=== PATIENT | female | born 2005 | race Caucasian/White ===

== ENCOUNTER 2024-09-18 11:47 | Inpatient (IN) | payer MEDICAID, SELFPAY ==
[2024-09-18] VITALS (7 sets, daily range): BP systolic 106–126; BP diastolic 57–84; PULSE 87–108; RESP 15–18; TEMP 36.8–37.1; O2SAT 95–99; BMI 21.7; BMI 21.6
--- NOTE | 2024-09-18 12:14 | EDS_ITS ---
HPI History of Present Illness Chief Complaint: Substance Abuse Narrative Narrative: Patient is a 19-year-old female past medical history of opiate abuse who presented to the emergency department with wanting detox. Patient states that she smokes heroin and notes that she last used last night. States that she is gone through detox before and states that she needs detox again. Patient has no specific complaints at this point time. Patient denies any history of IV drug use. PFSH PFSH Medical History no medical history Home Medications ?Medication ?Instructions ?Recorded ?Last Taken ?Type albuterol sulfate 90 mcg/actuation 1 puff inhalation Q 4H PRN wheezing 09/18/24 Unknown History aerosol inhaler Allergy/AdvReac Type Severity Reaction Status Date / Time No Known Allergies Allergy Verified 09/18/24 11:47 Social History Smoking Status: Current every day smoker tobacco type: cigarettes ROS ROS ED ROS Narrative Constitutional: Denies fevers, chills, headaches Cardiovascular: Denies chest pain Respiratory: Denies shortness of breath Abdomen: Denies nausea vomit diarrhea : Denies urinary symptoms Neurological: Denies numbness, weakness, tingling Skin: Denies rashes or lesions EXAM Physical Exam Narrative Exam Narrative: General: Patient lying in bed rest comfortably did not appear to be acute distress Head: Atraumatic, normocephalic Eyes: PERRL bilaterally, EOMI bilaterally, no conjunctival injection noted Neck: Soft, supple, trach midline Cardiovascular: Regular in rhythm no murmurs gallops rubs noted Respiratory: Clear to auscultation bilaterally Abdomen: Soft, nondistended, tender to palpation Extremities: +5/5 strength noted in the bilateral upper and lower extremities Neurological: Patient follow commands knew that she was at [facility] year is 2024 Skin: Warm, dry, intact no rashes or lesions noted Const Vital Signs: 09/18/24 11:48 09/18/24 12:50 09/18/24 13:00 Temperature 98.7 F Temperature Source Oral Pulse Rate 108 H 91 90 Respiratory Rate 16 15 16 Blood Pressure 106/76 110/69 112/58 L Blood Pressure Mean 86 82 76 Pulse Ox 96 96 96 Oxygen Delivery Method Room Air Room Air Room Air MDM MDM MDM Narrative Medical decision making narrative: Patient is a 19-year-old female who presented to the emergency department for detox from heroin. On the differential diagnosis includes but limited to heroin use, other opiate abuse, polysubstance abuse. Once she is medically cleared Case we discussed with hospitalist for admission. Patient CBC reviewed showed no evidence leukocytosis white blood count normal at 5.7, hemoglobin is 11.8, plate count normal at 225. Patient sodium normal 142, potassium of 4, creatinine was 0.59. Patient's test negative, alcohol level less than 10. Patient's drug screen pending. At this point time will discuss case with hospitalist for her detox program from opiates. Discussed case with hospitalist Dr. Hurtado who accept patient for admission. Patient was notified is agreeable to plan all question concerns answered. Lab Data Labs: Laboratory Results - last 24 hr 09/18/24 12:19 WBC 5.7 RBC 3.92 L Hgb 11.8 L Hct 35.8 L MCV 91.3 MCH 30.1 MCHC 33.0 RDW Std Deviation 42.1 RDW Coeff of Beatriz 12.7 Plt Count 225 MPV 10.0 Immature Gran % (Auto) 0.300 Neut % (Auto) 55.2 Lymph % (Auto) 32.8 [place] % (Auto) 8.2 Eos % (Auto) 3.3 Baso % (Auto) 0.2 Absolute Neuts (auto) 3.2 Absolute Lymphs (auto) 1.88 Nucleated RBC % 0 Sodium 142 Potassium 4.0 Chloride 111 H Carbon Dioxide 21.8 Anion Gap 10 BUN 18 Creatinine 0.59 L Estim Creat Clear Calc 125.82 Est GFR (MDRD) Non-Af 132 BUN/Creatinine Ratio 29.7 H Glucose 87 Calcium 8.6 Serum , Qual NEGATIVE Ethyl Alcohol < 10.1 Discharge Plan Triage Chief Complaint: Substance Abuse ED Provider: Alvin Harding Dx/Rx/DC Orders Clinical Impression: Opioid abuse Prescriptions: No Action albuterol sulfate 90 mcg/actuation HFA aerosol inhaler 1 puff INHALATION Q4H PRN (Reason: wheezing) Primary Care Provider: Care Physician,No Primary Referrals: Care Physician,No Primary [Primary Care Provider] - Print Language: Italian Disposition Disposition: Acute Care [facility]
[2024-09-18 12:25] LABS: Absolute Lymphocyte Count 1.88 X10^3/uL (0.83-4.51); Absolute Neutrophil Count 3.2 X10^3/uL (2.0-7.7); Basophil# 0.01 X10^3/uL; Basophil% 0.2 % (0-1); Eosinophil# 0.19 X10^3/uL; Eosinophils% 3.3 % (0-5); Hematocrit 35.8 % (37-47); Hemoglobin 11.8 g/dL (12.0-15.0); Lymphocyte # 1.88 X10^3/ul (0.83-4.51); Lymphocyte % 32.8 % (19-41); Mean Corpuscular Hgb 30.1 pg (27.0-32.0); Mean Corpuscular Volume 91.3 fL (81-99); Monocyte# 0.47 X10^3/uL; Monocyte% 8.2 % (0-10); NRBC Flagged by Analyzer 0 % (0-5); Neutrophil # 3.16 X10^3/uL (2.7-7.7); Neutrophil % 55.2 % (47-70); Platelet Count 225 K/mm3 (150-450); RBC Distribution Width CV 12.7 % (11.6-14.6); RBC Distribution Width SD 42.1 fl (35.1-43.9); Red Blood Count 3.92 M/mm3 (4.2-5.4); White Blood Count 5.7 K/mm3 (4.4-11.0)
[2024-09-18 12:37] LABS: Internal QC Validated? YES +Cl - CLEAR BKGD; Pregnancy, Serum, hCG Quali. NEGATIVE Negative
[2024-09-18 12:46] LABS: Alcohol, Blood (Medical)-Serum < 10.1 mg/dL (<=10.0)
[2024-09-18 12:47] LABS: Anion Gap 10 (5-15); BUN 18 mg/dL (4-19); BUN/Creat Ratio 29.7 RATIO (10-20); Calcium,Total 8.6 mg/dL (7.6-11.0); Carbon Dioxide 21.8 mmol/L (21.0-32.0); Chloride 111 mmol/L (98-108); Creatinine, Serum 0.59 mg/dL (0.70-1.20); EST Glomerular Filtration Rate 132 (>60); Estimated Creatinine Clearance 125.82 ml/min (50-250); Glucose 87 mg/dL (70-99); Sodium Level 142 mmol/L (133-145)
--- NOTE | 2024-09-18 13:26 | PCM.HP.STD ---
HPI - General General Date of Admission: 09/18/24 Date of Service: 09/18/24 Chief Complaint: Opioid detox HPI Narrative ANN MARIE MOYA, is a 19-year-old female with history of opiate abuse and tobacco abuse presented [facility] ED 09/18/2024 requesting detox. She smokes heroin with last use last night, has gone through detox before and feels she needs detox again. Denies history of IV drug use. In the ED patient initially with heart rate of 108 that improved and otherwise vitally stable, hemoglobin 11.8 with no previous baseline, alcohol negative. test negative and BMP fairly benign. Hospitalist contacted for admission for detox. Patient reports history as above, smokes heroin with most recent use last night, occasionally will do meth but not routinely, denies alcohol use, does vape and would like a nicotine patch, last detox was 1 year ago. Presently ROS negative for any acute complaints PFSH Medical History no medical history Home Medications ?Medication ?Instructions ?Recorded ?Last Taken ?Type albuterol sulfate 90 mcg/actuation 1 puff inhalation Q4H PRN wheezing 09/18/24 Unknown History aerosol inhaler Allergy/AdvReac Type Severity Reaction Status Date / Time No Known Allergies Allergy Verified 09/18/24 11:47 Social History Smoking Status: Current every day smoker tobacco type: cigarettes ROS ROS Narrative General: Denies fever/chills HENT: Denies headache, denies stuffy nose, denies sore throat EYES: Denies changes in vision Resp: Denies cough, denies shortness of breath Cardiac: Denies chest pain GI: Denies abdominal pain, denies changes in bowel, denies nausea/vomiting : Denies changes in urination Extremity: Denies swelling MSK: Denies weakness Neuro: Denies any numbness/tingling Heme: Denies any bleeding or bruising Skin: Denies rashes Psychiatric: No complaints voiced Vital Signs Vital Signs Vital Signs: 09/18/24 11:48 09/18/24 12:50 09/18/24 13:00 Temperature 98.7 F Temperature Source Oral Pulse Rate 108 H 91 90 Respiratory Rate 16 15 16 Blood Pressure 106/76 110/69 112/58 L Blood Pressure Mean 86 82 76 Pulse Ox 96 96 96 Oxygen Delivery Method Room Air Room Air Room Air Weight Weight: 55.792 kg Body Mass Index (BMI) 21.7 Physical Exam Narrative General: Alert, oriented, no apparent distress HEENT: Atraumatic, normocephalic Eyes: Anicteric, normal conjunctiva, extraocular movements grossly intact Neck: Supple Respiratory: Clear to auscultation bilaterally, normal respiratory effort Cardiovascular: Regular rate and rhythm GI: Soft, nontender, nondistended Extremities: No edema Musculoskeletal: Moving all extremities Neuro: No overt focal neurological deficits Skin: No rashes appreciated Psych: Cooperative Results Lab / Micro Data 09/18/24 12:19 09/18/24 12:19 Labs: Laboratory Results - last 24 hr 09/18/24 12:19: WBC 5.7, RBC 3.92 L, Hgb 11.8 L, Hct 35.8 L, MCV 91.3, MCH 30.1, MCHC 33.0, RDW Std Deviation 42.1, RDW Coeff of Beatriz 12.7, Plt Count 225, MPV 10.0, Immature Gran % (Auto) 0.300, Neut % (Auto) 55.2, Lymph % (Auto) 32.8, [place] % (Auto) 8.2, Eos % (Auto) 3.3, Baso % (Auto) 0.2, Absolute Neuts (auto) 3.2, Absolute Lymphs (auto) 1.88, Nucleated RBC % 0, Sodium 142, Potassium 4.0, Chloride 111 H, Carbon Dioxide 21.8, Anion Gap 10, BUN 18, Creatinine 0.59 L, Estim Creat Clear Calc 125.82, Est GFR (MDRD) Non-Af 132, BUN/Creatinine Ratio 29.7 H, Glucose 87, Calcium 8.6, Serum , Qual NEGATIVE, Ethyl Alcohol < 10.1 Assessment & Plan Assessment/Plan (1) Opioid abuse: PLAN: Plan #Acute opiate withdrawal - Subutex taper initiated - As needed Tylenol, ibuprofen, bowel regimen, gabapentin, Bentyl, Vistaril, methocarbamol, clonidine - As needed trazodone nightly - As needed antiemetics -Once patient begins to clinically improve will discuss further discharge planning #Tobacco use -Advise cessation -Nicotine replacement available if desired #DVT ppx: Low risk, ambulatory Elyssa Hurtado MD Charges/Coding Visit Charges Inpatient E&M: 61373 Init Hosp L1
--- NOTE | 2024-09-18 14:24 | CM.ED ---
Social work Reason for referral: lack of insurance Referral source: case find This SW identified patient's lack of insurance and need for resources. This SW entered patient's room, introducing self and role at [facility]. Patient confirmed lack of insurance and willingly accepted how to apply for Medicaid information page with [facility] information added. Patient denied further needs at this time and SW explained that patient would be given further resources during admission for detox. Patient expressed understanding. Chaya Kaufman, MANAGER BUSINESS PLANNING, SPECIAL AGENT
[2024-09-18 14:27] LABS: Amphetamine Urine NEGATIVE (<1000 ng/mL); Barbiturate Urine NEGATIVE (< 200 ng/mL); Benzodiazepine Urine NEGATIVE (< 200 ng/mL); Buprenorphine Urine NEGATIVE (< 200 ng/mL); Cocaine Urine NEGATIVE (< 300 ng/mL); Fentanyl, Urine PRESUMPTIVE POSITIVE; Methadone Urine NEGATIVE (< 300 ng/mL); Opiates Urine PRESUMPTIVE POSITIVE (< 300 ng/mL); Oxycodone, Urine NEGATIVE (< 100 ng/mL); PCP Urine NEGATIVE (< 25 ng/mL); THC Urine PRESUMPTIVE POSITIVE (< 50 ng/mL)
[2024-09-18] MEDS: Dicyclomine 10 MG Capsule 20 MG PO (20:26)
[2024-09-18] MEDS: Buprenorphine HCl 2 MG TAB.SUBL SL (22:20)
[2024-09-19 02:11] VITALS: BP 115/87; PULSE 70; RESP 18; TEMP 37.2; O2SAT 100
[2024-09-19] MEDS: cloNIDine HCl 0.1 MG Tablet PO ×2 (02:21→16:54)
[2024-09-19] MEDS: Acetaminophen 325 MG Tablet 650 MG PO (02:21)
[2024-09-19 06:27] VITALS: BP 125/86; PULSE 78; RESP 18; TEMP 36.9; O2SAT 99
[2024-09-19] MEDS: Buprenorphine HCl 2 MG TAB.SUBL SL ×3 (06:27→21:52)
--- NOTE | 2024-09-19 07:44 | PCM.PN.HOSP ---
Reason for Visit Reason for Visit: Opiate detox Subjective Subjective Patient denies any issues. Not super interested in communicating. Objective Data Objective Data Vital Signs: Vital Signs Temp Pulse Resp BP Pulse Ox O2 Del Method 98.5 F 78 18 125/86 H 99 Room Air 09/19/24 06:27 09/19/24 06:27 09/19/24 06:27 09/19/24 06:27 09/19/24 06:27 09/19/24 06:27 Oxygen Delivery Method Room Air Weight: 55.429 kg Body Mass Index (BMI) 21.6 Intake & Output: Intake and Output for Last 24 Hours 09/17/24 09/18/24 09/19/24 23:59 23:59 23:59 Intake Total 200 / 200 Balance 200 / 200 Lab / Micro Data 09/18/24 12:19 09/18/24 12:19 Labs: Laboratory Results - last 24 hr 09/18/24 12:19: WBC 5.7, RBC 3.92 L, Hgb 11.8 L, Hct 35.8 L, MCV 91.3, MCH 30.1, MCHC 33.0, RDW Std Deviation 42.1, RDW Coeff of Beatriz 12.7, Plt Count 225, MPV 10.0, Immature Gran % (Auto) 0.300, Neut % (Auto) 55.2, Lymph % (Auto) 32.8, [place] % (Auto) 8.2, Eos % (Auto) 3.3, Baso % (Auto) 0.2, Absolute Neuts (auto) 3.2, Absolute Lymphs (auto) 1.88, Nucleated RBC % 0, Sodium 142, Potassium 4.0, Chloride 111 H, Carbon Dioxide 21.8, Anion Gap 10, BUN 18, Creatinine 0.59 L, Estim Creat Clear Calc 125.82, Est GFR (MDRD) Non-Af 132, BUN/Creatinine Ratio 29.7 H, Glucose 87, Calcium 8.6, Serum , Qual NEGATIVE, Ethyl Alcohol < 10.1 09/18/24 13:11: Urine Opiates Screen PRESUMPTIVE POSITIVE, U Buprenorphine Qual NEGATIVE, Ur Oxycodone Screen NEGATIVE, Urine Methadone Screen NEGATIVE, Urine Fentanyl Screen PRESUMPTIVE POSITIVE, Ur Barbiturates Screen NEGATIVE, Ur Phencyclidine Scrn NEGATIVE, Ur Amphetamines Screen NEGATIVE, U Benzodiazepines Scrn NEGATIVE, Urine Cocaine Screen NEGATIVE, U Cannabinoids Screen PRESUMPTIVE POSITIVE Physical Exam Const no apparent distress and average body habitus Constitutional Narrative: Patient lying in left side-lying, awakens and answers simple questions but not overtly interactive, currently appears restless, nontoxic HEENT head/scalp atraumatic Head and Scalp: normocephalic Neuro moves all extremities and no focal motor deficits Psych Psych Narrative: Restless Mood & Affect: anxious Assessment & Plan Assessment/Plan (1) Opioid abuse: PLAN: Plan Acute opiate withdrawal secondary to chronic opiate abuse - Subutex taper per [facility]OWS protocol - Continue as needed medication for symptom relief - As needed Tylenol available for pain - 180 consultation for assistance with discharge planning - UDS was presumptive positive for opiates/fentanyl/cannabinoids Anemia - Mild to 11.8 - recommend outpatient follow-up for stability - Patient is a menstruating female Marijuana use - Recommend cessation Tobacco abuse - Recommend cessation - Nicotine patch available if needed CODE STATUS - Full code Charges/Coding Visit Charges Inpatient E&M: 36699 Subs Hosp L1
[2024-09-19 10:04] VITALS: BP 102/73; PULSE 69; RESP 15; TEMP 36.5; O2SAT 98
[2024-09-19 14:03] VITALS: BP 108/75; PULSE 69; RESP 18; TEMP 36.4; O2SAT 97
--- NOTE | 2024-09-19 15:08 | ADDICTION ---
This copywriter met with PT to conduct ASAM, MSE, DUDIT assessments and to plan for d/c. PT A+Ox4 and participated actively. All assessments completed and placed in PT's chart. PT plans to f/u with [facility] at [facility] for follow[facility]
[2024-09-19] MEDS: hydrOXYzine PAM 25 MG Capsule 50 MG PO (16:54)
[2024-09-19] MEDS: Methocarbamol 750 MG Tablet PO (17:59)
[2024-09-19 21:46] VITALS: BP 135/82; PULSE 92; RESP 16; TEMP 36.9; O2SAT 98
[2024-09-19] MEDS: Ibuprofen 600 MG Tablet PO (21:51)
[2024-09-19] MEDS: traZODone 100 MG Tablet PO (22:58)
[2024-09-20 02:18] VITALS: BP 123/69; PULSE 92; RESP 16; TEMP 36.6; O2SAT 96
[2024-09-20] MEDS: cloNIDine HCl 0.1 MG Tablet PO (03:29)
[2024-09-20] MEDS: Acetaminophen 325 MG Tablet 650 MG PO (03:29)
[2024-09-20 06:07] VITALS: BP 128/68; PULSE 93; RESP 16; TEMP 36.7; O2SAT 96
[2024-09-20] MEDS: Buprenorphine HCl 2 MG TAB.SUBL SL (06:09)
--- NOTE | 2024-09-20 07:11 | PCM.PN.HOSP ---
Reason for Visit Reason for Visit: Diagnoses Opioid abuse, uncomplicated (09/18/24) Objective Data Objective Data Vital Signs: Vital Signs Temp Pulse Resp BP Pulse Ox O2 Del Method 98.1 F 93 16 128/68 H 96 Room Air 09/20/24 06:07 09/20/24 06:07 09/20/24 06:07 09/20/24 06:07 09/20/24 06:07 09/20/24 06:07 Oxygen Delivery Method Room Air Weight: 55.429 kg Body Mass Index (BMI) 21.6 Intake & Output: Intake and Output for Last 24 Hours 09/18/24 09/19/24 09/20/24 23:59 23:59 23:59 Intake Total 200 / 200 Balance 200 / 200 Lab / Micro Data 09/18/24 12:19 09/18/24 12:19
--- NOTE | 2024-09-20 10:18 | PCM.DC.SUM ---
Providers Date of Admission: 09/18/24 Date of Discharge: 09/20/24 Primary Care Physician: No Primary Care Phys Reason For Visit: OPIOID DETOX Diagnosis Discharge Diagnosis (1) Opioid abuse: Status: Acute Code(s): F11.10 - Opioid abuse, uncomplicated Medications at Discharge Home Medications albuterol sulfate 90 mcg/actuation aerosol inhaler 1 puff inhalation Q4H PRN wheezing 09/18/24 Hospital Course Operations None Procedures None Summary of Care Provided Minutes Spent on Discharge: 22 Hospital Course: Ms Guthrie is a 19-year-old white female who presented to the emergency department at [facility] on 09/18/2024 with a chief complaint of opiate abuse and requesting opiate detox. Patient uses heroin but has never used IV drugs. She states the night prior to presentation she smoked it. She reported she is gone through detox before. On presentation she complained of feeling restless and had tachycardia. She occasionally uses meth but does not use this routinely. Vital signs on presentation showed temperature of 98.7, heart rate 108, blood pressure was 106/76, respiratory rate was 16 oxygen saturation was 96% on room air. CBC was overtly benign other than mild anemia with a hemoglobin 11.8. Chemistry panel was unremarkable. test was negative. UDS was presumptive positive for opiates, fentanyl, and cannabinoids. Alcohol level was less than 10. Patient was admitted and placed on buprenorphine taper per [facility] protocol along with supportive medications for withdrawal symptoms. Patient was evaluated by 180 and plan was for treatment and inpatient services with 180 to transport on Saturday at 10:30 AM however the patient stated she was feeling quite well on 09/20/2024 and wanted to go see her son before she got admitted into inpatient services. Her CINA was 0 at the time of discharge and she reported she was feeling well and wanted to go home. She reported she would go to 180 tomorrow to be admitted. Given the fact that she was asymptomatic and feeling well and wanted to go we did feel it prudent to discharge her home. She was instructed to follow-up tomorrow at 180 at her scheduled appointment for admission at 10 AM. Discharge diagnoses: Acute opiate withdrawal Opiate abuse Polysubstance use Tobacco abuse Mild anemia Physical Exam Const alert, oriented x3, no apparent distress, average body habitus, no limitations, healthy appearing and well nourished Constitutional Narrative: Very pleasant, young, white female, sitting up in bed watching television, appears comfortable, no signs of restlessness or agitation, nontoxic General Appearance: cooperative, comfortable, well kempt and well developed HEENT normocephalic, head/scalp atraumatic and moist oral mucous membranes Resp normal respiratory effort, no retractions, no use of accessory muscles and clear to auscultation bilaterally Auscultation: Negative for crackles, rhonchi or wheezes Cardio regular rate, regular rhythm, S1 normal heart sound, S2 normal heart sound, no murmurs and no rub GI normal to inspection, nondistended, normoactive bowel sounds, soft to palpation and non-tender Extremity no clubbing, cyanosis or edema Extremity Narrative: Radial and pedal pulses are 2+ Neuro moves all extremities and no focal motor deficits Psych affect normal Psych Narrative: Very pleasant, interacts appropriately Weight / BMI Weight Weight: 55.429 kg Body Mass Index (BMI) 21.6 ABG / Lab / Microbiology Data 09/18/24 12:19 09/18/24 12:19 D/C Instructions Discharge Diet: No restrictions DC O2, CPAP, BIPAP Needs Home O2 Discharge instructions: No Meaningful Use Info Meaningful Use Meaningful Use Diagnoses (Choose all that apply): None applicable Ischemic Stroke Statin Dosing Therapy Reference: STATIN DOSE THERAPY REFERENCE: * Patients > 75 years receive moderate or high dose statin therapy. * Patients 75 years or YOUNGER should receive HIGH intensity statin dose unless contraindicated. You will be required to document reason for non-treatment if statin daily dose does not meet guidelines. HIGH DOSE STATIN THERAPY DAILY Atorvastatin > than or = to 40 mg Rosuvastatin > than or = to 20 mg Amlodipine + Atorvastatin > than or = to 2.5/40 mg Ezetimibe + Simvastatin 10/80 mg Simvastatin 80mg Discharge Plan Admission Admit Date/Time: 09/18/24 13:27 Primary Reason for Your Visit: Opiate detox Attending Provider: Lurdes Dee Primary Care Provider: Care Physician,No Primary Consulting Providers: Elyssa Hurtado Instructions Additional Instructions / Restrictions: 1. Please report to 180 tomorrow at 10 AM for admission to inpatient Discharge Orders/Prescriptions Prescriptions: Continued albuterol sulfate 90 mcg/actuation HFA aerosol inhaler 1 puff INHALATION Q4H PRN (Reason: wheezing) Referrals / Follow Up: Care Physician,No Primary [Primary Care Provider] - Disposition Disposition (needs filled in before D/C Order can be placed): Home, Self Care Charges/Coding Visit Charges Inpatient E&M: 45913 Disch Hosp
[2024-09-20 10:23] VITALS: BP 113/82; PULSE 74; RESP 12; TEMP 36.7; O2SAT 100
== END 2024-09-20 13:30 | disposition home or self-care (01) | DRG 773 ==
LOC: ED 13:33 → MS3 13:44
PROVIDERS: Admitting Provider Internal Medicine; Emergency Provider Emergency Medicine; Referring Provider Internal Medicine; Visit Provider Internal Medicine
DX: F11.13 Opioid abuse with withdrawal (principal); D64.9 Anemia, unspecified; F15.90 Other stimulant use, unspecified, uncomplicated; F17.210 Nicotine dependence, cigarettes, uncomplicated; F12.90 Cannabis use, unspecified, uncomplicated
CPT/HCPCS: 80048; 80307; 82077; 84703; 85025; 99283